=== PATIENT | male | born 1975 | race Two or more races ===

== ENCOUNTER 2019-10-05 16:23 | Emergency (ER) | payer SELFPAY ==
[~2019-10-05] VITALS: Ht 172.7 cm; Wt 105.2 kg
[2019-10-05] MEDS ORDERED: SODIUM CHLORIDE FLUSH 10ML SYR IVF ONE (17:00)
[2019-10-05 17:13] LABS: BASOPHILS # (AUTO) 0.06 x10^3/uL (0-0.1); BASOPHILS % (AUTO) 1 % (0-1); EOSINOPHILS # (AUTO) 0.18 x10^3/uL (0-0.4); EOSINOPHILS % (AUTO) 2 % (1-7); LYMPHOCYTES # (AUTO) 1.93 x10^3/uL (1-3.4); LYMPHOCYTES % (AUTO) 22 % (22-44); MD NO; MEAN CORPUSCULAR HGB CONC 33.7 g/dL (33.2-36.2); MEAN CORPUSCULAR VOLUME 91.9 fL (81-97); MEAN PLATELET VOLUME 8.3 fL (7.4-10.4); MONOCYTES # (AUTO) 0.73 x10^3/uL (0.2-0.8); MONOCYTES % (AUTO) 8 % (2-9); NEUTROPHILS % (AUTO) 67 % (42-75); PLATELET COUNT 228 x10^3/uL (130-400); RED BLOOD COUNT 4.73 x10^6/uL (4.38-5.82); RED CELL DISTRIBUTION WIDTH 14.5 % (9.4-14.8)
--- NOTE | 2019-10-05 17:13 | NUR ---
FISH ICER: PT AMBULATORY WITH STEADY GAIT TO ROOM FROM LOBBY AT THIS TIME. MANDO
[2019-10-05 17:22] LABS: ALBUMIN 3.6 g/dL (3.4-5.0); ANION GAP 8 mmol/L (5-15); CALCIUM 8.6 mg/dL (8.5-10.1); CHLORIDE 106 mmol/L (98-107)
[2019-10-05 17:23] LABS: CREATININE 1.31 mg/dL (0.7-1.3)
--- NOTE | 2019-10-05 17:50 | NUR ---
RECEIVED REPORT FROM DALTON THOMPSON, ASSUMING CARE OF PT NOW. PT CURRENTLY IN CT
[2019-10-05] MEDS ORDERED: OMNIPAQUE 350 MG/ML, 100ML BOTTLE ONE (18:03)
--- NOTE | 2019-10-05 18:04 | NUR ---
vback from ct
--- NOTE | 2019-10-05 18:24 | NUR ---
ALL RESUTLS BACK AT THIS TIME, CHART UP FOR RECHECK
[2019-10-05 18:30] VITALS: BP 156/75
[2019-10-05] MEDS ORDERED: LIDOCAINE 1%-EPI 1:100K, 20ML SQ ONE (19:00)
[2019-10-05] MEDS ORDERED: LIDOCAINE 1%-EPI 1:100K, 20ML ONE (19:27)
--- NOTE | 2019-10-05 19:54 | NUR ---
RN with midlevel provider to bedside. Patient assisted into prone position, and midlevel injected ordered numbing medication. Patient agreeable. Swollen area expressed with assistance of RN, first sanguienous drainage, then purulent drainage expressed, finally becoming sanguinous again. incision packed with 1/4 iodoform and taped. Covered with 4"x4" and spouse and patient educated can change dressing if it becomes soiled. Patient agreeable. Awaiting for discharge.
== END 2019-10-05 20:29 | disposition home or self-care (01) ==
LOC: ED 20:00
DX: K61.1 Rectal abscess (principal); K61.0 Anal abscess
CPT/HCPCS: 36415; 46050; 72193; 80048; 82040; 85025; 99285; Q9967

== ENCOUNTER 2019-10-08 10:34 | Emergency (ER) | payer SELFPAY ==
[~2019-10-08] VITALS: Ht 172.7 cm; Wt 103.9 kg
[2019-10-08 10:49] VITALS: BP 123/70
== END 2019-10-08 11:25 | disposition home or self-care (01) ==
LOC: ED 10:49
DX: Z48.01 Encounter for change or removal of surgical wound dressing (principal); F17.200 Nicotine dependence, unspecified, uncomplicated
CPT/HCPCS: 99283